=== PATIENT | male | born 1985 | race American Indian/Alaskan Native ===

== ENCOUNTER 2018-01-01 03:18 | Emergency (ER) | payer SELFPAY ==
[2018-01-01 03:29] VITALS: BP 145/99
[2018-01-01] MEDS ORDERED: MOTRIN PO ONE (03:43)
--- NOTE | 2018-01-01 04:25 | Emergency Department Report ---
ED Upper Extremity Inj HPI - General Chief Complaint: Extremity Injury, Upper Stated Complaint: LEFT HAND SWELLING Time Seen by Provider: 01/01/18 04:20 Source: patient Mode of arrival: Ambulatory Limitations: No Limitations - History of Present Illness Initial Comments: Patient is a 32-year-old -[place] male states he punched a wall with his left hand 2 days ago now presents with left dorsal hand fourth and fith digit and hand pain with tingling. Pain described as 4/10 and 8/10 with palpation and movement. There is no open wound. MD Complaint: Injury to:: left, hand Onset/Timin -: days(s) Other Extremity Injury: Hand: Left Other Injuries: none Handedness: left Place: home Severity scale (0 -10): 4 Improves With: none Worsens With: movement of extremity, other (palpation) Context: direct blow, other (punched brick wall ) Associated Symptoms: denies: weakness, numbness, neck pain, suspects foreign body, nausea/vomiting Treatments Prior to Arrival: cold therapy - Related Data Previous Rx's Medication Instructions Recorded Last Taken Type Cyclobenzaprine [Flexeril 10mg] 10 mg PO TID PRN #14 tablet 11/11/14 Unknown Rx HYDROcodone/ACETAMINOPHEN [[place] 1 each PO TID #14 tablet 11/11/14 Unknown Rx 7.5-325 mg TAB] Ibuprofen [Motrin] 800 mg PO Q8H PRN #30 tablet 11/11/14 Unknown Rx Acetaminophen/Codeine [Tylenol 1 tab PO Q6H PRN #15 tab 01/01/18 Unknown Rx /Codeine # 3 tab] Allergies Allergy/AdvReac Type Severity Reaction Status Date / Time No Known Allergies Allergy Unverified 11/11/14 16:14 ED Review of Systems ROS: Stated complaint: LEFT HAND SWELLING Other details as noted in HPI Constitutional: denies: chills, fever Eyes: denies: eye pain, eye discharge, vision change ENT: denies: ear pain, throat pain Respiratory: denies: cough, shortness of breath, wheezing Cardiovascular: denies: chest pain, palpitations Endocrine: no symptoms reported Gastrointestinal: denies: abdominal pain, nausea, diarrhea Genitourinary: denies: urgency, dysuria Musculoskeletal: joint swelling, myalgia Skin: denies: rash, lesions Neurological: denies: headache, weakness, paresthesias Psychiatric: denies: anxiety, depression Hematological/Lymphatic: denies: easy bleeding, easy bruising ED Past Medical Hx - Past Medical History Hx GERD: Yes - Surgical History Additional Surgical History: tonsillectomy, adenoids, tubes in ears. - Social History Smoking Status: Current Every Day Smoker Substance Use Type: None - Medications Home Medications: Home Medications Medication Instructions Recorded Confirmed Last Taken Type Cyclobenzaprine [Flexeril 10mg] 10 mg PO TID PRN #14 tablet 11/11/14 Unknown Rx HYDROcodone/ACETAMINOPHEN [[place] 1 each PO TID #14 tablet 11/11/14 Unknown Rx 7.5-325 mg TAB] Ibuprofen [Motrin] 800 mg PO Q8H PRN #30 tablet 11/11/14 Unknown Rx Acetaminophen/Codeine [Tylenol 1 tab PO Q6H PRN #15 tab 01/01/18 Unknown Rx /Codeine # 3 tab] ED Physical Exam - General Limitations: No Limitations General appearance: alert, in no apparent distress - Head Head exam: Present: atraumatic, normocephalic - Eye Eye exam: Present: normal appearance - ENT ENT exam: Present: mucous membranes moist - Neck Neck exam: Present: normal inspection - Respiratory Respiratory exam: Present: normal lung sounds bilaterally. Absent: respiratory distress - Cardiovascular Cardiovascular Exam: Present: regular rate, normal rhythm. Absent: systolic murmur, diastolic murmur, rubs, gallop - GI/Abdominal GI/Abdominal exam: Present: soft, normal bowel sounds - Rectal Rectal exam: Present: deferred - Extremities Exam Extremities exam: Present: tenderness, normal capillary refill, joint swelling. Absent: pedal edema, calf tenderness - Expanded Upper Extremity Exam Left Hand Wrist exam: Present: tenderness, swelling, ecchymosis, erythema, other ( metacarpal ecchymosis swelling ). Absent: abrasion, laceration, deformity, crepidus, dislocation, amputation, nail avulsion, subungual hematoma Hand L/R Back: 1 - 4th and 5 th digit ecchymosis Neuro motor exam: Present: wrist extension intact, thumb opposition intact, thumb IP flexion intact, thumb adduction intact, fingers 2-5 abduction intact Neurosensory exam: Present: 2-point discrimination, radial nerve intact, ulnar nerve intact, median nerve intact Vascular: Present: normal capillary refill, radial pulse, brachial pulse, ulnar pulse. Absent: vascular compromise, Pallo, pulse deficit radial art, pulse deficit ulnar art, pulse deficit brachial art - Back Exam Back exam: Present: normal inspection, full ROM - Neurological Exam Neurological exam: Present: alert, oriented X3, CN II-XII intact, normal gait, reflexes normal - Psychiatric Psychiatric exam: Present: normal affect, normal mood - Skin Skin exam: Present: warm, dry, intact, normal color. Absent: rash ED Course Vital Signs 01/01/18 01/01/18 03:24 03:30 Temperature 98.0 F 98 F Pulse Rate 72 70 Respiratory 18 16 Rate Blood Pressure 145/99 145/99 O2 Sat by Pulse 97 99 Oximetry ED Medical Decision Making - Radiology Data Radiology results: image reviewed left comminuted left 4th metcarpal distal fracture closed - Medical Decision Making this is a closed comminuted boxers fracture no numbeness or tingling rom intact mirror inspector <3 sec, plan: wrist splint ulnar gutter follow up with ortho tomorrow pt verbalized agreement and understanding of same ulnar gutter splint place at this time spacing appropiated to 2 finger insertion, mirror inspector < 3 sec, bialt , radial pulse +2, Critical care attestation.: If time is entered above; I have spent that time in minutes in the direct care of this critically ill patient, excluding procedure time. ED Disposition Clinical Impression: Fracture of metacarpal shaft of left hand, closed Qualifiers: Encounter type: initial encounter Metacarpal bone: fourth Fracture alignment: displaced Qualified Code(s): S62.325A - Displaced fracture of shaft of fourth metacarpal bone, left hand, initial encounter for closed fracture Disposition: TO HOME OR SELFCARE Condition: Good Instructions: Hand Fracture (ED), Boxer Fracture (ED) Prescriptions: Acetaminophen/Codeine [Tylenol /Codeine # 3 tab] 1 tab PO Q6H PRN #15 tab PRN Reason: Pain , Severe (7-10) Referrals: RUCHI NASH MD [Staff Physician] - 3-5 Days Forms: Work/School Release Form(ED) Time of Disposition: 04:39
--- NOTE | 2018-01-01 04:27 | XRay Report ---
FINAL REPORT EXAM: XR Left Hand CLINICAL INDICATIONS: LT HAND/FINGERS SWELLING FINDINGS: PA, lateral and oblique views of the left hand were acquired and demonstrate an acute comminuted fracture of the distal metaphysis and head of the fourth metacarpal. This lies in mild palmar angulation. There is an old, healed fracture of the fifth metacarpal. IMPRESSION: ACUTE COMMINUTED FRACTURE OF DISTAL METAPHYSIS AND HEAD OF FOURTH METACARPAL
== END 2018-01-01 04:53 | disposition home or self-care (01) ==
LOC: ED 03:18
DX: S62.325A Displaced fracture of shaft of fourth metacarpal bone, left hand, initial encounter for closed fracture (principal); K21.9 Gastro-esophageal reflux disease without esophagitis; F17.200 Nicotine dependence, unspecified, uncomplicated; Z90.89 Acquired absence of other organs; W22.01XA Walked into wall, initial encounter; Y93.89 Activity, other specified; Y99.8 Other external cause status; Y92.009 Unspecified place in unspecified non-institutional (private) residence as the place of occurrence of the external cause

== ENCOUNTER 2022-03-28 06:19 | Emergency (ER) | payer OTHER ==
--- NOTE | 2022-03-28 07:18 | XRay Report ---
XR knee 3V LT INDICATION / CLINICAL INFORMATION: KNEE PAIN COMPARISON: None available. FINDINGS: BONES / JOINT(S): No acute fracture or malalignment. Moderate tricompartmental osteoarthritis of the left knee. Corticated ossific densities project in the anterior knee, likely reflecting intra-articul ar bodies. No sizable joint effusion. SOFT TISSUES: No significant abnormality. Signer Name: Hever Sands MD Signed: 03/28/2022 7:14 AM Workstation Name: [id number]
[2022-03-28] MEDS ORDERED: dexAMETHasone 4 MG/ML VIAL PO ONE (08:00)
[2022-03-28] MEDS ORDERED: KETOROLAC 30 MG/1 ML INJ IM ONE (08:00)
[2022-03-28] MEDS ORDERED: oxyCODONE /ACETAMINOPHEN 5-325MG TAB PO ONE (08:01)
--- NOTE | 2022-03-28 08:16 | Emergency Department Report ---
ED Extremity Problem HPI - General Chief complaint: Extremity Problem,Nontraumatic Stated complaint: LT KNEE PAIN Time Seen by Provider: 03/28/22 07:29 Source: patient Mode of arrival: Ambulatory Limitations: No Limitations - History of Present Illness Initial comments: 37-year-old black male with no past medical history presents to the emergency department for evaluation of left knee pain. He states that for the last 2 to 3 months he has had left knee pain but over the last 48 hours it has gotten significantly worse. He denies injury or trauma. He states that he has seen an orthopedic surgeon for his knee pain but still has not had any improvement in symptoms. MD Complaint: extremity pain, extremity swelling, joint swelling -: Gradual, days(s) (3) Location: left, knee History of Same: Yes -: No myalgia, No arthralgia, No fever, No associated dyspnea, No associated chest pain Radiation: distal Severity scale (0 -10): 10 Quality: aching Consistency: constant Worsens with: weight bearing, palpation Associated Symptoms: denies: chest pain, shortness of breath, fever, myalgias, arthralgias, rash - Related Data Previous Rx's Medication Instructions Recorded Last Taken Type Cyclobenzaprine [Flexeril 10mg] 10 mg PO TID PRN #14 tablet 11/11/14 Unknown Rx HYDROcodone/ACETAMINOPHEN [[place] 1 each PO TID #14 tablet 11/11/14 Unknown Rx 7.5-325 mg TAB] Ibuprofen [Motrin] 800 mg PO Q8H PRN #30 tablet 11/11/14 Unknown Rx Acetaminophen/Codeine [Tylenol 1 tab PO Q6H PRN #15 tab 01/01/18 Unknown Rx /Codeine # 3 tab] Cyclobenzaprine [Flexeril] 10 mg PO TID PRN #10 tablet 05/05/20 Unknown Rx Ibuprofen [Motrin] 800 mg PO Q8HR PRN #30 tablet 05/05/20 Unknown Rx predniSONE [Deltasone] 20 mg PO DAILY #5 tablet 05/05/20 Unknown Rx Naproxen [Naprosyn] 500 mg PO BID #14 tab 03/28/22 Unknown Rx methylPREDNISolone [Medrol 4MG 4 mg PO DAILY #1 pack 03/28/22 Unknown Rx DOSEPAK (21 tabs)] Allergies Allergy/AdvReac Type Severity Reaction Status Date / Time No Known Allergies Allergy Verified 05/05/20 10:40 ED Review of Systems ROS: Stated complaint: LT KNEE PAIN Other details as noted in HPI Comment: All other systems reviewed and negative Constitutional: denies: chills, fever ENT: denies: congestion Respiratory: denies: shortness of breath Cardiovascular: denies: chest pain, palpitations Gastrointestinal: denies: abdominal pain, nausea, vomiting Genitourinary: denies: urgency, dysuria Musculoskeletal: denies: back pain Neurological: denies: headache, weakness ED Past Medical Hx - Past Medical History Hx GERD: Yes - Surgical History Additional Surgical History: tonsillectomy, adenoids, tubes in ears. - Social History Smoking Status: Current Every Day Smoker Substance Use Type: Alcohol, Marijuana - Medications Home Medications: Home Medications Medication Instructions Recorded Confirmed Last Taken Type Cyclobenzaprine [Flexeril 10mg] 10 mg PO TID PRN #14 tablet 11/11/14 Unknown Rx HYDROcodone/ACETAMINOPHEN [[place] 1 each PO TID #14 tablet 11/11/14 Unknown Rx 7.5-325 mg TAB] Ibuprofen [Motrin] 800 mg PO Q8H PRN #30 tablet 11/11/14 Unknown Rx Acetaminophen/Codeine [Tylenol 1 tab PO Q6H PRN #15 tab 01/01/18 Unknown Rx /Codeine # 3 tab] Cyclobenzaprine [Flexeril] 10 mg PO TID PRN #10 tablet 05/05/20 Unknown Rx Ibuprofen [Motrin] 800 mg PO Q8HR PRN #30 tablet 05/05/20 Unknown Rx predniSONE [Deltasone] 20 mg PO DAILY #5 tablet 05/05/20 Unknown Rx Naproxen [Naprosyn] 500 mg PO BID #14 tab 03/28/22 Unknown Rx methylPREDNISolone [Medrol 4MG 4 mg PO DAILY #1 pack 03/28/22 Unknown Rx DOSEPAK (21 tabs)] ED Physical Exam - General Limitations: No Limitations General appearance: alert, in no apparent distress - Head Head exam: Present: atraumatic, normocephalic - Eye Eye exam: Present: normal appearance. Absent: conjunctival injection - Neck Neck exam: Present: normal inspection - Respiratory Respiratory exam: Absent: respiratory distress - Cardiovascular Cardiovascular Exam: Present: regular rate - GI/Abdominal GI/Abdominal exam: Absent: distended - Expanded Lower Extremity Exam Left Knee exam: Present: tenderness, swelling. Absent: normal inspection (Warm to touch), full ROM, abrasion, deformity, crepidus, effusion Lower Leg exam: Present: normal inspection Ankle exam: Present: normal inspection Foot/Toe exam: Present: normal inspection Neuro vascular tendon exam: Present: no vascular compromise. Absent: pulse deficit, abnormal cap refill, motor deficit, sensory deficit, extremity cold to touch, pallor Gait: Positive: observed and limited by pain - Back Exam Back exam: Present: normal inspection - Neurological Exam Neurological exam: Present: alert, oriented X3 - Psychiatric Psychiatric exam: Present: normal affect, normal mood - Skin Skin exam: Present: warm, dry, intact, normal color ED Course Vital Signs 03/28/22 06:25 Temperature 98.6 F Pulse Rate 100 H Respiratory 18 Rate Blood Pressure 162/100 O2 Sat by Pulse 97 Oximetry ED Medical Decision Making - Radiology Data Radiology results: report reviewed, image reviewed Left knee x-ray: FINDINGS: BONES / JOINT(S): No acute fracture or malalignment. Moderate tricompartmental osteoarthritis of the left knee. Corticated ossific densities project in the anterior knee, likely reflecting intra- articular bodies. No sizable joint effusion. SOFT TISSUES: No significant abnormality. - Medical Decision Making 37-year-old black male with no past medical history presents to the emergency department for evaluation of left knee pain. He states that for the last 2 to 3 months he has had left knee pain but over the last 48 hours it has gotten significantly worse. He denies injury or trauma. He states that he has seen an orthopedic surgeon for his knee pain but still has not had any improvement in symptoms. Left knee x-ray noted to have moderate osteoarthritis. Patient will be treated with one-time dose of Decadron, Toradol, and Percocet while in the emergency department and discharged home with steroid Dosepak and naproxen to take over the next few days. He is advised to take medications as prescribed and follow- up with his orthopedic surgeon if no improvement or worsening symptoms. He is advised to return to the emergency department as needed. He verbalizes understanding of and agreement with plan of care. Critical care attestation.: If time is entered above; I have spent that time in minutes in the direct care of this critically ill patient, excluding procedure time. ED Disposition Clinical Impression: Osteoarthritis of left knee Qualifiers: Osteoarthritis type: unspecified Qualified Code(s): M17.12 - Unilateral primary osteoarthritis, left knee Disposition: 01 HOME / SELF CARE / HOMELESS Is pt being admited?: No Does the pt Need Aspirin: No Condition: Stable Instructions: Osteoarthritis, Arthritis, [id number], How to Use a Knee Brace Additional Instructions: Take medications as prescribed. Follow-up with your orthopedic surgeon if no improvement or worsening symptoms. Return to the emergency department as needed. Prescriptions: methylPREDNISolone [Medrol 4MG DOSEPAK (21 tabs)] 4 mg PO DAILY #1 pack Naproxen [Naprosyn] 500 mg PO BID #14 tab Referrals: RUCHI NASH MD [Staff Physician] - 3-5 Days Time of Disposition: 08:19
[2022-03-28 08:45] VITALS: BP 146/87
== END 2022-03-28 09:08 | disposition home or self-care (01) ==
LOC: ED 06:19
DX: M17.12 Unilateral primary osteoarthritis, left knee (principal); K21.9 Gastro-esophageal reflux disease without esophagitis; Z98.890 Other specified postprocedural states; F17.290 Nicotine dependence, other tobacco product, uncomplicated
CPT/HCPCS: 73562; 96372; 99283; J1100; J1885